=== PATIENT | female | born 1960 | race Caucasian/White ===

== ENCOUNTER 2017-07-04 16:31 | Inpatient (IN) | payer MEDICARE, MEDICAID ==
[~2017-07-04] VITALS: Ht 152.4 cm; Wt 75.3 kg
[~2017-07-04 16:31] MED LIST: AMLO10TA4 PO; AMLODIPINE; BLOOD SUGAR DIAGNOSTIC STRIP TEST SCH; CALC667C4; COR12 PO; ECOTRIN PO; FURO-152; INSNOV; INSULIN LISPRO 100 UNITS/ML SUBCUT SCH; ISOS1POW; LEVPEN SQ; LISI-604 PO; REN800 PO; hydralazine PO; renagel PO
[2017-07-04 17:23] LABS: BASOPHILS % 0.7 % (0.0-2.0); EOSINOPHILS % 2.6 % (0.0-5.0); HEMATOCRIT. 38.1 % (36.0-48.0); HEMOGLOBIN. 12.6 g/dL (12.0-16.0); LYMPHOCYTES % 12.1 % (20.0-50.0); MEAN CORPUSCULAR HEMOGLOBIN 32.5 pg (28.0-32.0); MEAN CORPUSCULAR VOLUME 98.7 fL (81.0-99.0); MEAN PLATELET VOLUME 8.2 fl (7.4-10.4); MONOCYTES % 9.3 % (2.0-8.0); NEUTROPHILS % 75.3 % (40.0-76.0); PLATELET 126 x1000/uL (130-400); RED BLOOD CELL COUNT 3.86 mill/uL (4.2-5.4); RED CELL DISTRIBUTION WIDTH 16.8 % (11.6-14.6)
[2017-07-04 17:27] LABS: INR 1.3; PROTHROMBIN TIME 13.4 sec (9.4-11.6)
[2017-07-04 17:34] LABS: CARBON DIOXIDE 27 mEq/L (21-32); CHLORIDE 100 mEq/L (98-107)
[2017-07-04] MEDS ORDERED: ALBUTEROL (0.083%) 2.5MG/3ML NEB HHN ONE (18:30)
[2017-07-04] MEDS ORDERED: DEXTROSE 50% WATER 50ML SYRINGE IV ONE (18:30)
[2017-07-04] MEDS ORDERED: INSULIN REGULAR (HUMULIN R) 300UNITS/3ML IV ONE (18:30)
[2017-07-04] MEDS ORDERED: CLONIDINE 0.1MG TABLET PO PRN (19:15)
[2017-07-04] MEDS ORDERED: TRAMADOL 50MG TABLET PO PRN (19:15)
[2017-07-04] MEDS ORDERED: ACETAMINOPHEN 325MG TABLET PO PRN (19:15)
[2017-07-04] MEDS ORDERED: ONDANSETRON HCL 4MG/2ML VIAL IV PRN (19:15)
[2017-07-04] MEDS ORDERED: LORAZEPAM 2MG/ML CPJ IV PRN (19:15)
[2017-07-04] MEDS ORDERED: NITROGLYCERIN 0.4MG TABLET SL SL PRN (19:15)
[2017-07-04] MEDS ORDERED: IPRATROPIUM/ALBUTEROL 0.5-3(2.5)MG/3ML NEB INH PRN (19:15)
[2017-07-04] MEDS ORDERED: MAGNESIUM/ALUMINUM HYDROXIDE/SIMETHICONE 30ML UDC PO PRN (19:15)
[2017-07-04] MEDS ORDERED: NA PHOS,M-B/NA PHOS,DI-BA ENEMA 118ML PR PRN (19:15)
[2017-07-04] MEDS ORDERED: DOCUSATE SODIUM 100MG CAPSULE PO PRN (19:15)
[2017-07-04] MEDS ORDERED: GUAIFENESIN 200MG/10ML SUGAR FREE UDC PO PRN (19:15)
[2017-07-04] MEDS ORDERED: DIPHENHYDRAMINE 50MG/ML VIAL IV PRN (19:15)
[2017-07-04] MEDS ORDERED: DEXTROSE 50% WATER 50ML SYRINGE IV PRN ×2 (20:30→22:45)
[2017-07-04 21:03] VITALS: BP 200/100
[2017-07-04 21:57] LABS: TROPONIN I 0.09 ng/mL (0.00-0.04)
[2017-07-04] MEDS ORDERED: ZOLPIDEM TARTRATE 5MG TABLET PO PRN (22:00)
[2017-07-04] MEDS: FAMOTIDINE 20MG/2ML VIAL IV SCH (22:39)
[2017-07-04] MEDS: METOPROLOL TARTRATE 25MG TABLET PO SCH (22:40)
[2017-07-04] MEDS: HYDRALAZINE HCL 50MG TABLET PO SCH (22:41)
[2017-07-05] VITALS: BP 212/99
[2017-07-05 04:00] VITALS: BP 125/68
[2017-07-05] MEDS: HYDRALAZINE HCL 50MG TABLET PO SCH ×4 (06:00→21:34)
[2017-07-05 06:43] LABS: TROPONIN I 0.09 ng/mL (0.00-0.04)
[2017-07-05 07:02] LABS: CREATINE KINASE MB FRACTION 3.6 ng/mL (0.5-3.6)
[2017-07-05] MEDS: INSULIN LISPRO 100 UNITS/ML SUBCUT SCH ×4 (07:10→21:32)
[2017-07-05] MEDS: BLOOD SUGAR DIAGNOSTIC STRIP TEST SCH ×4 (07:10→21:26)
[2017-07-05 07:40] LABS: BASOPHILS % 0.5 % (0.0-2.0); EOSINOPHILS % 1.8 % (0.0-5.0); HEMATOCRIT. 37.6 % (36.0-48.0); HEMOGLOBIN. 12.5 g/dL (12.0-16.0); LYMPHOCYTES % 22.7 % (20.0-50.0); MEAN CORPUSCULAR HEMOGLOBIN 32.6 pg (28.0-32.0); MEAN CORPUSCULAR VOLUME 97.9 fL (81.0-99.0); MEAN PLATELET VOLUME 8.3 fl (7.4-10.4); MONOCYTES % 9.7 % (2.0-8.0); NEUTROPHILS % 65.3 % (40.0-76.0); PLATELET 117 x1000/uL (130-400); RED BLOOD CELL COUNT 3.84 mill/uL (4.2-5.4); RED CELL DISTRIBUTION WIDTH 16.5 % (11.6-14.6)
[2017-07-05 07:52] LABS: CARBON DIOXIDE 19 mEq/L (21-32); CHLORIDE 100 mEq/L (98-107)
[2017-07-05 07:53] VITALS: BP 172/86
[2017-07-05] MEDS: AMLODIPINE 10MG TABLET PO SCH (08:02)
[2017-07-05] MEDS: METOPROLOL TARTRATE 25MG TABLET PO SCH ×2 (08:02→21:33)
[2017-07-05] MEDS: FOLIC ACID/VITAMIN B COMP W-C TABLET PO SCH (08:02)
[2017-07-05] MEDS: ASPIRIN 325MG EC TABLET PO SCH (08:02)
[2017-07-05] MEDS: ENOXAPARIN 30MG/0.3ML SYR SUBCUT SCH (08:03)
[2017-07-05 11:49] VITALS: BP 147/87
[2017-07-05 15:54] VITALS: BP 152/61
[2017-07-05 20:00] VITALS: BP 179/69
[2017-07-05] MEDS: FAMOTIDINE 20MG/2ML VIAL IV SCH (21:18)
[2017-07-06] VITALS (7 sets, daily range): BP systolic 149–177; BP diastolic 58–78
[2017-07-06] MEDS: BLOOD SUGAR DIAGNOSTIC STRIP TEST SCH ×4 (06:00→21:07)
[2017-07-06] MEDS: HYDRALAZINE HCL 50MG TABLET PO SCH (06:07)
[2017-07-06] MEDS: INSULIN LISPRO 100 UNITS/ML SUBCUT SCH ×4 (06:08→21:34)
[2017-07-06 06:36] LABS: BASOPHILS % 0.8 % (0.0-2.0); EOSINOPHILS % 4.2 % (0.0-5.0); HEMATOCRIT. 36.8 % (36.0-48.0); HEMOGLOBIN. 12.2 g/dL (12.0-16.0); MEAN CORPUSCULAR HEMOGLOBIN 32.7 pg (28.0-32.0); MEAN CORPUSCULAR VOLUME 98.5 fL (81.0-99.0); MEAN PLATELET VOLUME 8.1 fl (7.4-10.4); MONOCYTES % 10.9 % (2.0-8.0); NEUTROPHILS % 64.1 % (40.0-76.0); PLATELET 120 x1000/uL (130-400); RED BLOOD CELL COUNT 3.73 mill/uL (4.2-5.4); RED CELL DISTRIBUTION WIDTH 16.6 % (11.6-14.6)
[2017-07-06 07:57] LABS: PHOSPHORUS 5.3 mg/dL (2.5-4.9)
[2017-07-06] MEDS: METOPROLOL TARTRATE 25MG TABLET PO SCH ×2 (08:35→21:31)
[2017-07-06] MEDS: ASPIRIN 325MG EC TABLET PO SCH (08:35)
[2017-07-06] MEDS: AMLODIPINE 10MG TABLET PO SCH (08:35)
[2017-07-06] MEDS: FOLIC ACID/VITAMIN B COMP W-C TABLET PO SCH (08:35)
[2017-07-06] MEDS: ENOXAPARIN 30MG/0.3ML SYR SUBCUT SCH (08:36)
[2017-07-06] MEDS: DOCUSATE SODIUM 100MG CAPSULE PO SCH ×3 (08:45→17:00)
[2017-07-06] MEDS ORDERED: SODIUM POLYSTYRENE SULFONATE 15 G/60 ML BOT PO NR ×2 (08:45→20:45)
[2017-07-06] MEDS ORDERED: FAMOTIDINE 20MG TABLET PO SCH (09:21)
[2017-07-06] MEDS ORDERED: LORAZEPAM 2MG/ML CPJ IV PRN (11:15)
[2017-07-06] MEDS: HYDRALAZINE HCL 100MG TABLET PO SCH ×2 (15:08→21:35)
[2017-07-06] MEDS ORDERED: POLYETHYLENE GLYCOL 3350 (17GM) 1 DOSE PACK PO SCH (21:00)
== END 2017-07-06 22:15 | disposition home or self-care (01) | DRG 291 ==
LOC: ER 16:31 → 8WST 18:41 → ENRESERV 19:51
PROVIDERS: ADMIT Internal Medicine; ATTEND Internal Medicine
DX: I13.2 Hypertensive heart and chronic kidney disease with heart failure and with stage 5 chronic kidney disease, or end stage renal disease (principal); N18.6 End stage renal disease; J96.91 Respiratory failure, unspecified with hypoxia; J84.9 Interstitial pulmonary disease, unspecified; D69.6 Thrombocytopenia, unspecified; E11.22 Type 2 diabetes mellitus with diabetic chronic kidney disease; I50.21 Acute systolic (congestive) heart failure; E44.1 Mild protein-calorie malnutrition; E87.5 Hyperkalemia; K21.9 Gastro-esophageal reflux disease without esophagitis; I25.10 Atherosclerotic heart disease of native coronary artery without angina pectoris; E88.09 Other disorders of plasma-protein metabolism, not elsewhere classified; D64.9 Anemia, unspecified; Z79.4 Long term (current) use of insulin; Z82.49 Family history of ischemic heart disease and other diseases of the circulatory system; Z99.2 Dependence on renal dialysis; Z91.14 Patient's other noncompliance with medication regimen; Z83.3 Family history of diabetes mellitus; Z79.899 Other long term (current) drug therapy; Z68.32 Body mass index [BMI] 32.0-32.9, adult
CPT/HCPCS: 36415; 71010; 80048; 80053; 80061; 82553; 82962; 83036; 83735; 84100; 84484; 85025; 85610; 86850; 86900; 93005; 93306; 93970; 96374; 96375; 99285; C1893; J1200; J1650; J1815; J3490; J7030; J7611